=== PATIENT | female | born 1975 | race Caucasian/White ===

== ENCOUNTER 2016-10-11 23:55 | Inpatient (IN) | payer OTHER ==
--- NOTE | ~2016-10-11 | ST ---
Unit #: [id number] #: [id number] Patient: ROMAN ODEN [id number] [facility]. [address] [address] [id number] I MR#: [id number] NAME: ROMAN ODEN : 1975 SEX: F STUDY DATE/TIME: 10/12/2016 UNIT: CEDOF ROOM: 44438 STUDY DESCRIPTION: Stress Test Attending Physician: Joann Garcia M.D. Primary Care Physician: Tyler Cordoba M.D. CARDIOLOGY REPORT EXAM Exercise Cardiolite REASON FOR TEST Chest pain. DESCRIPTION Baseline EKG shows normal sinus rhythm, rate of 91 beats per minute. The patient exercised on the treadmill according to Julius protocol for a total of 5 minutes 26 seconds achieving 6.70 METs with a resting heart rate of 91 beats per minute and peak heart rate of 173 beats per minute representing 97% of the maximum predicted heart rate. There were no ST segment changes noted during the testing. The patient did experience frequent ventricular ectopy during the testing period. This resolved in recovery. During the test, the patient did complain of shortness of breath that worsened with exertion. She denied any complaints of chest pain. However, the patient was unable to go into stage 2 secondary to this reason. Therefore, her testing was modified in order to achieve target heart rate and to keep the patient comfortable. IMPRESSION 1. Negative EKG portion of exercise Cardiolite. 2. No ST segment changes suggestive of ischemia. 3. Frequent ventricular ectopy noted during exercise. Occasional PVCs in recovery. 4. Patient denied any complaints of chest pain throughout the testing period. However, she did complain of shortness of breath and was unable to go into stage 2. Her Julius protocol was modified in order to achieve target heart rate. Patient did complain of extreme shortness of breath. 5. Testing was stopped secondary to this reason and the target heart rate achieved. 6. Poor exercise tolerance. 7. Please correlate with nuclear imaging. Unit #: [id number] #: [id number] Patient: ROMAN ODEN Dictated by... Lacey Demarco M.D. LMW/mavis TD: 10/12/2016 12:51 JOB #: [id number] CARDIOLOGY REPORT Page 1 of 1 X Lisseth Alvarado APRN CARDIOLOGY REPORT
--- NOTE | ~2016-10-11 | CO ---
Unit #: [id number] #: [id number] Patient: ROMAN ODEN [id number] [address] [place], [place] [address] [id number] I MR#: [id number] NAME: ROMAN ODEN ROOM: 549 Age: 40 Sex: F Admission Date: 10/12/2016 : 1975 Attending Physician: Joann Garcia M.D. Primary Care Physician: Tyler Cordoba M.D. Consultation Date: 10/14/2016 CONSULTATION REPORT REASON FOR CONSULTATION Elevated creatinine level. HISTORY OF PRESENT ILLNESS The patient is a 40-year-old white female with known history of hypertension, asthma. She has not been seeing physicians for the last several years. She is not taking any medications. The patient has not had a recent creatinine level as she has not seen a physician in the last two years or so. 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 The patient has not needed dialysis in the past. She has not seen a shadow graph weight operator in the past. The creatinine level is noted to be 2.3. There was no reported use of NSAIDs. No recent IV contrast. No vomiting, diarrhea. No hematuria, dysuria. PAST MEDICAL HISTORY Significant for hypertension with no medications for last several years; history of asthma; history of heroin use, reportedly quit 1 to 1-1/2 years ago. PAST SURGICAL HISTORY Significant for cholecystectomy and tubal ligation. HOME MEDICATIONS Includes Suboxone twice daily and Zantac 150 twice daily. ALLERGIES No known drug allergies. SOCIAL HISTORY The patient lives at home. She is unemployed. Smokes half a pack daily. FAMILY HISTORY Significant for father at age of 68 from congestive heart failure. REVIEW OF SYSTEMS CVS: Chest pain as above. RESPIRATORY: No cough or expectoration. GI: No diarrhea, no vomiting. : No hematuria, no dysuria. PHYSICAL EXAMINATION GENERAL: The patient is awake, alert, and oriented. VITAL SIGNS: Blood pressure is 138/98, heart rate is 102 per minute, temperature is 99.8, saturation 99%. Unit #: [id number] #: [id number] Patient: ROMAN ODEN HEENT: Head is atraumatic. Extraocular movements are intact. Sclerae are anicteric. Nose, no discharge. Ears, no discharge. NECK: Supple. There was no elevation of JVD. CHEST: Clear. Air entry is equal bilaterally with scattered rhonchi. HEART: S1 and S2 audible. There is no S3, no S4. ABDOMEN: Soft. There is no organomegaly. No guarding. No rigidity. No rebound tenderness. There is no edema. PROMOTIONAL ADVERTISING ASSISTANT: Motor system is intact. Cerebellar system is intact. DIAGNOSTIC STUDIES LABORATORY RESULTS: Sodium 136, potassium 4.1, chloride 109, CO2 of 21, calcium 8.3, glucose is 92, creatinine 2.2. Bilirubin is 0.5, AST is 12, ALT is 9, alkaline phosphatase is 61. WBC 11.7, hemoglobin 9, hematocrit 28.2, platelets 496. IMPRESSION 1. Likely chronic kidney disease secondary to hypertensive nephrosclerosis. The patient has been noncompliant, has not been following with physicians. We will check renal ultrasound. 2. Possible underlying anemia of chronic kidney disease. 3. Hypertension. 4. Asthma. 5. Chest pain. Dictated by... Philippe Lucas M.D. RA/joe TD: 10/15/2016 04:12 JOB #: [id number] CONSULTATION REPORT Page 1 of 1 X Philippe Lucas MD CONSULTATION REPORT
--- NOTE | ~2016-10-11 | DS ---
Unit #: [id number] #: [id number] Patient: ROMAN RAUSCH [id number] [address] [address] [id number] I MR#: [id number] NAME: ROMAN RAUSCH. ROOM: 549 Age: 40 Sex: F Admission Date: 10/12/2016 : 1975 Discharge Date: 10/14/2016 Attending Physician: Joann Garcia M.D. Primary Care Physician: Tyler Cordoba M.D. DISCHARGE SUMMARY FINAL DIAGNOSES 1. Chest pain. Acute myocardial infarction has been ruled out. Stress test was done, which is normal. Ejection fraction is 67%. 2. Acute on chronic kidney disease. The patient was seen by Dr. Lucas. Medications were adjusted. 3. Hypertension, uncontrolled. Medications have been adjusted. 4. Anemia, most likely secondary to chronic kidney disease, and also iron-deficiency anemia with low serum iron level and low ferritin level. 5. Urinary tract infection with urine culture preliminary result is gram-negative rods, possible Escherichia coli. 6. Asthma. 7. Gastroesophageal reflux disease. 8. History of drug abuse. DISCHARGE MEDICATIONS Lisinopril 5 mg p.o. daily, Norvasc 5 mg p.o. daily, Lopressor 25 mg b.i.d., Zantac 150 mg b.i.d., aspirin 81 mg daily, Suboxone continue home dose, Levaquin 500 mg daily for 5 days. CONSULTATION DURING HOSPITALIZATION 1. Dr. Ludwig from Cardiology Services. 2. Dr. Lucas from Renal Services. DIAGNOSTIC STUDIES LABORATORY RESULTS: Upon discharge; sodium 139, potassium 4.1, chloride 112, BUN 19, creatinine 2.1. CBC shows WBC 7.1, hemoglobin 8.2, hematocrit 24.3, and platelet count of 278. Ferritin is 9, which is low. Serum iron is 23, which is low. TSH was 2.42. Lipid profile shows total cholesterol 134, triglycerides 66, LDL 91, and HDL 30. Urine culture preliminary result is gram-negative more than 100,000 colonies. IMAGING STUDIES: Ultrasound of the kidneys were done bilateral, which showed negative renal ultrasound. PROCEDURE PERFORMED Stress test, which shows no ischemia. HOSPITAL COURSE Ms. Roman Rausch is a 40-year-old female, who was admitted to the hospital Unit #: [id number] #: [id number] Patient: ROMAN RAUSCH with a complaint of chest pain. Acute myocardial infarction was ruled out. Stress test was done, which was negative. The patient is being placed on aspirin, beta-julio cesar, and calcium channel julio cesar. Per cardiology, no further cardiac workup is needed at this time. The patient was also found to have acute on chronic kidney disease. The patient was seen by Dr. Lucas. Most likely, she does have chronic kidney disease, stage 3. The patient's renal functions are acceptable. Volume is satisfactory. The patient can be discharged home. The patient was found to be anemic. The patient does have anemia secondary to renal disease and also iron-deficiency anemia. The patient is being prescribed ferrous sulfate to be taken twice a day. Lab workup needs to be done as an outpatient. She may need a GI workup as an outpatient for anemia. PHYSICAL EXAMINATION VITAL SIGNS: On discharge, blood pressure is 134/85; respiratory rate 16; pulse is 87; temperature 98.3. CHEST: Fair air entry. No additional sounds. CVS: S1, S2 positive. Regular rhythm. ABDOMEN: Soft. EXTREMITIES: Negative edema. DISCHARGE INSTRUCTIONS 1. The patient is being discharged home in stable condition. 2. Medication as per med rec. 3. Follow up with primary care provider in 1 week. 4. CBC and BMP to be done in 1 week to evaluate anemia and renal functions. 5. Follow up with Dr. Ludwig on 01/11/2017 at 2:15 p.m. 6. Follow up on final urine culture report at primary care provider's office. 7. Plan of care has been discussed with the patient at length. Dictated by... Cem Torres/joe TD: 10/17/2016 01:19 JOB #: [id number] DISCHARGE SUMMARY Page 1 of 1 X Joann Garcia MD DISCHARGE SUMMARY
--- NOTE | ~2016-10-11 | US77 ---
[facility] A Service of [facility] RADIOLOGY TEXT RESULTS PATIENT: ROMAN ODEN LOCATION: [facility] : [birth year] UNIT #: [id number] AGE: [address]: Joann Garcia MD SEX: F ORDER DR: [id number] [place], [place] [address] [id number] I MR#: [id number] Acc #: [id number] NAME: ROMAN ODEN. : 1975 SEX: F STUDY DATE/TIME: 10/12/2016 12:43 UNIT: [facility] ROOM: [facility] STUDY DESCRIPTION: US Kidney Bilateral Complete Attending Physician: Joann Garcia M.D. Ordering Physician: Philippe Lucas M.D. Primary Care Physician: Tyler Cordoba M.D. MEDICAL IMAGING REPORT This report is preliminary unless electronic signature is present EXAM Renal ultrasound INDICATIONS Acute kidney injury. eGFR 26, BUN 16, creatinine 2.2. TECHNIQUE Taylor-scale and Doppler imaging of the kidneys and bladder. COMPARISON None. FINDINGS The left kidney measures 9.9 cm. No hydronephrosis. The right kidney measures 7.3 cm. No obvious hydronephrosis. IMPRESSION Negative renal ultrasound. Dictated by... Lopez Leo M.D. THIS IS AN ELECTRONICALLY VERIFIED REPORT Lopez Leo M.D. at 10/13/2016 7:19 AM EED/pcl TD: 10/12/2016 23:03 JOB #: [id number] MEDICAL IMAGING REPORT [facility] A Service of [facility] RADIOLOGY TEXT RESULTS PATIENT: ROMAN ODEN LOCATION: [facility] : [birth year] UNIT #: [id number] AGE: [address]: Joann Garcia MD SEX: F ORDER DR: Page 1 of 1 COPY
--- NOTE | ~2016-10-11 | CO ---
Unit #: [id number] #: [id number] Patient: ROMAN RAUSCH [id number] [address] [place], [place] [address] [id number] I MR#: [id number] NAME: ROMAN RAUSCH ROOM: 549 Age: 40 Sex: F Admission Date: 10/12/2016 : 1975 Attending Physician: Joann Garcia M.D. Primary Care Physician: Tyler Cordoba M.D. CONSULTATION REPORT REASON FOR CONSULTATION Chest pain. HISTORY OF PRESENT ILLNESS This is a 40-year-old white female with known history of, reports she has, asthma; hypertension, but currently has been on medications for couple of years; nicotine abuse; former heroin abuse, who was in rehabilitation, who came to the emergency room with complaints of midsternal chest pain. According to the patient, she started developing this pain few hours before admission. She described it as a sharp intense pain; on pain scale 1 to 10, rated it about 7. No radiation of the pain up into the neck, bilateral jaws, shoulders, arms, or elbow. Has some slight shortness of breath with pain. Denies any palpitations, nausea, vomiting, dizziness, or diaphoresis. The patient's father of congestive heart failure. She was concerned it could be her heart, so she came to the emergency room for further evaluation and management. The patient has never been seen by a field naturalist in the past. In the emergency room, the patient's blood pressure was 166/97, heart rate 91, respirations 16, temperature 98.3, O2 saturation was 100% on room air. The patient's EKG showed normal sinus rhythm. No acute ischemic changes. Initial cardiac enzymes negative. The patient received aspirin 81 mg x4 and received normal saline bolus. Her initial labs; the patient's BUN was 17 with a creatinine of 2.3, eGFR was 25.4, potassium was 4.2. WBCs 11.7, hemoglobin was 9 with platelets of 496. The patient will be admitted for further evaluation. Cardiology was consulted to assist with evaluation and management. PAST MEDICAL HISTORY 1. Hypertension, but noncompliant with medications, has not taken anything for about 2 years. 2. Reports of asthma. 3. Nicotine abuse. 4. Heroin abuse, quit -2 years ago using heroin. PAST SURGICAL HISTORY 1. Cholecystectomy. 2. Tubal ligation. HOME MEDICATIONS Suboxone 8 mg/2mg sublingual b.i.d., Zantac 150 mg p.o. b.i.d. ALLERGIES Unit #: [id number] #: [id number] Patient: ROMAN RAUSCH No known drug allergies. SOCIAL HISTORY The patient lives with her family. She is currently unemployed. She smokes about a half pack of cigarettes a day, has been smoking most of her adult life. No alcohol use. She used to use heroin and quit, and has been clean for one and a half years. FAMILY HISTORY Her father at the age of 68 of congestive heart failure. Mother and siblings are in generally well health. REVIEW OF SYSTEMS See details in HPI. PHYSICAL EXAMINATION GENERAL: On exam, Ms. Rausch is a 40-year-old white female, in no acute respiratory distress. She is awake, alert, and oriented. VITAL SIGNS: Currently, blood pressure is 138/98, heart rate 102, respirations 16, temperature 99.8, O2 saturations 99% on room air. NECK: Trachea midline. No thyromegaly or lymphadenopathy. Normal carotid upstrokes. No jugular venous distention. HEART: S1, S2. Regular rate and rhythm. No clicks, murmurs, or rubs. LUNGS: Diminished with expiratory faint wheezes and scattered rhonchi that clears with cough. ABDOMEN: Soft, nontender. Positive bowel sounds present. EXTREMITIES: Pedal pulses are palpable. No pedal edema. DIAGNOSTIC DATA LABORATORY RESULTS: Today's lab; glucose is 92, BUN 16, creatinine 2.2, eGFR is 26.8, sodium 136, potassium 4.1, chloride 109, CO2 of 21, calcium is 8.3, total protein 7.7, albumin 3.6, bilirubin total 0.5, AST 12, ALT 9, alkaline phosphatase is 61. WBCs 11.7, hemoglobin 9.0, hematocrit 28.2, platelets are 496. Initial cardiac enzymes; CK-MB is less than 1.0, troponin less than 0.05. Latest cardiac enzymes; CK total is 27, troponin less than 0.03. INR is 1.0. IMAGING STUDIES: Chest x-ray shows nothing acute. Lungs are clear. CARDIOVASCULAR STUDIES: EKG shows normal sinus rhythm with ventricular rate 92 beats per minute, slow R-wave progression. IMPRESSION 1. Chest pain, questionable etiology. 2. Poorly controlled hypertension. 3. Acute kidney injury. 4. Gastroesophageal reflux disease. 5. Anemia. 6. History of tobacco abuse. 7. History of heroin abuse. 8. Mild exacerbation of bronchitis. PLAN 1. Cardiology consult to assist with evaluation and management of chest pain. 2. On interview and exam, Dr. Ludwig feels likely her chest pain is costochondritis, however, she has multiple risk factors along with a history of drug abuse and nicotine abuse and poorly controlled Unit #: [id number] #: [id number] Patient: ROMAN RAUSCH hypertension. Plans are to do a stress test to further evaluate for ischemic heart disease. 3. Obtain a TSH and fasting lipid profile and evaluate. 4. We will start the patient on amlodipine 5 mg p.o. now and make any adjustments for better blood pressure control. 5. We will consult Dr. King with Nephrology to evaluate the patient's acute kidney injury, likely secondary to poorly controlled hypertension. 6. Obtain a 2D echo to evaluate LV function and valves. 7. Treatment for bronchitis. 8. Encourage the patient to completely quit smoking. Smoking cessation information provided to the patient. 9. On exam, there are no signs or symptoms of acute congestive heart failure. 10. Further recommendations pending per Dr. Ludwig. Dictated by... Kaci Plata A.P.R.N. for Cem Nino/joe TD: 10/13/2016 00:45 JOB #: [id number] CONSULTATION REPORT Page 1 of 1 X Kaci Plata APRN CONSULTATION REPORT
--- NOTE | ~2016-10-11 | TH ---
Unit #: [id number] #: [id number] Patient: ROMAN ODEN [id number] [facility]. [address] [address] [id number] I MR#: [id number] NAME: ROMAN ODEN. : 1975 SEX: F STUDY DATE/TIME: 10/12/2016 UNIT: C5B ROOM: [facility] STUDY DESCRIPTION: Cardiolite study Attending Physician: Joann Garcia M.D. Primary Care Physician: Tyler Cordoba M.D. CARDIOLOGY REPORT EXAM Exercise Cardiolite stress test nuclear portion. SUMMARY Using Tc-99m labeled Cardiolite, rest and stress SPECT images were obtained. Multiple SPECT images were obtained in various views including horizontal and vertical long axis and short axis views of the left ventricle. Images were obtained by gated SPECT method. The patient was administered 10.56 mCi of Cardiolite at rest. The patient was administered 30.8 mCi of Cardiolite at peak exercise. Total exercise time is 2 minutes and 49 seconds. On the stress images, there is normal perfusion noted. The rest images showed normal perfusion. Comparing rest and stress images, there is no stress induced ischemia noted. The left ventricular ejection fraction is calculated to be 67%. There is no focal wall motion abnormality seen. CONCLUSION 1. No stress induced ischemia noted. 2. The left ventricular ejection fraction is calculated to be 67%. 3. There is no focal wall motion abnormality seen. 4. Normal nuclear portion of the stress test. 5. It must be noted that the patient exercised for only 2 minutes and 49 seconds and had extreme shortness of breath. Clinical correlation is requested. 1. Dictated by... Cem Yanes TD: 10/13/2016 08:45 JOB #: [id number] Unit #: [id number] #: [id number] Patient: ROMAN ODEN CARDIOLOGY REPORT Page 1 of 1 X Briana Pearson MD <ELECTRONICALLY SIGNED> 01/22/17 1429 CARDIOLOGY REPORT
--- NOTE | ~2016-10-11 | EKG ---
PATIENT: ROMAN ODEN UNIT #: [id number] Ventricular Rate: 92 BPM Atrial Rate: 92 BPM P-R Interval: 132 ms QRS Duration: 74 ms Q-T Interval: 396 ms QTC Calculation(Bezet): 489 ms P Berry: 9 degrees Calculated R Berry: -5 degrees Calculated T Berry: 21 degrees Diagnosis Line: Normal sinus rhythm Diagnosis Line: Prolonged QT Diagnosis Line: Abnormal ECG Diagnosis Line: No previous ECGs available Diagnosis Line: Confirmed by GLORIA PERRY MD ([id number]) on 10/12/2016 Diagnosis Line: 10:08:56 PM INTERPRETING MD: VICKY JACKSON
--- NOTE | ~2016-10-11 | CR72 ---
[facility] A Service of [facility] RADIOLOGY TEXT RESULTS PATIENT: ROMAN ODEN LOCATION: [facility] [id number] : [birth year] UNIT #: [id number] AGE: [address]: Joann Garcia MD SEX: F ORDER DR: [id number] [facility] [address] [facility]. [place], [place] [address] [id number] I MR#: [id number] Acc #: [id number] NAME: ROMAN ODEN : 1975 SEX: F STUDY DATE/TIME: 10/11/2016 21:04 UNIT: CEDOF ROOM: 33854 STUDY DESCRIPTION: CR Chest Single View Portable Attending Physician: Joann Garcia M.D. Ordering Physician: Ed Doctor [id number] [facility] Primary Care Physician: Tyler Cordoba M.D. MEDICAL IMAGING REPORT This report is preliminary unless electronic signature is present EXAM Frontal chest, 10/11/2016 INDICATIONS Chest pain that began today, tobacco abuse 15 years, asthma, hypertension. TECHNIQUE Frontal chest compared with 07/03/2010. FINDINGS Cardiac silhouette is within normal limits for technique. Vascularity unremarkable. Lungs appear clear. No pneumothorax or effusion. IMPRESSION 1. Negative frontal chest. No change. Dictated by... Phoenix Cabrera M.D. THIS IS AN ELECTRONICALLY VERIFIED REPORT Phoenix Cabrera M.D. at 10/12/2016 11:41 AM ELIZABETH/kristi TD: 10/12/2016 00:30 JOB #: [id number] MEDICAL IMAGING REPORT Page 1 of 1 COPY
--- NOTE | ~2016-10-11 | HP ---
Unit #: [id number] #: [id number] Patient: ROMAN ODEN R [id number] [facility] [address] [place], [place] [address] [id number] MR#: [id number] NAME: ROMAN ODEN ROOM: 549 Age: 40 Sex: F Admission Date: 10/12/2016 : 1975 Attending Physician: Joann Garcia M.D. Primary Care Physician: Tyler Cordoba M.D. HISTORY AND PHYSICAL CHIEF COMPLAINT Chest pain. HISTORY OF PRESENTING ILLNESS Miss Alvarado is a 40-year-old female with a history of hypertension, asthma, GERD, and history of drug abuse, on Suboxone at this time, who came with chest pain. Patient was sitting watching TV when suddenly she had pain in the epigastric area and left chest area. It was continuous pain. She did not have any shortness of breath, no radiation of pain to the left arm or the neck, no sweating, and no palpitations. She came to [facility] ER. Cardiac enzymes were done, and Cardiology was consulted. Patient was admitted to rule out any cardiac etiology. Patient was also found to have acute renal insufficiency. According to patient, she has had multiple stones in the kidneys but does not remember having any kidney failure. Patient does not have any primary care provider at this time and is looking for one. PAST MEDICAL HISTORY 1. Hypertension. 2. Asthma. 3. Gastroesophageal reflux disease. 4. History of drug abuse. PAST SURGICAL HISTORY 1. Cholecystectomy. 2. Tubal ligation. HOME MEDICATIONS Zantac and omeprazole. She is not on any blood pressure medication at this time. SOCIAL HISTORY Patient lives at home with her boyfriend and two children. She has been smoking for the last 15 years and smokes one-half pack per day. No history of alcohol abuse. She has a past history of drug abuse. She used to snort heroin but has been clean for the last one and a half years. FAMILY HISTORY Patient's father at the age of 68 with congestive heart failure and also had diabetes. According to patient, her aunts and uncles on her mother's side have a strong history of malignancies, but she does not know exactly what kind. Unit #: [id number] #: [id number] Patient: ROMAN ODEN REVIEW OF SYSTEMS No history of fever, chills, or rigors. No history of abdominal pain. No history of nausea and vomiting. No history of dizziness. No history of syncopal episode. No skin issues. No leg swelling. PHYSICAL EXAMINATION GENERAL: Patient is lying in bed in no respiratory distress. VITAL SIGNS: Blood pressure 130/88. It was 166/97 on admission. Respiratory rate 18, pulse 78, and temperature 98.4. Temperature was 100.1 on admission, although she has been afebrile so far. HEENT: Head is normocephalic. Eye movements are normal. NECK: Supple. CHEST: Fair air entry. No additional sounds. CARDIOVASCULAR: S1 and S2 positive. Regular rhythm. ABDOMEN: Obese, soft. No tenderness, no rigidity, no rebound. Bowel sounds are positive. EXTREMITIES: Negative edema. Pulses are palpable. CENTRAL NERVOUS SYSTEM: Awake, alert, and oriented x3. No focal neurological deficit. DIAGNOSTIC STUDIES LABORATORY: PT 10.2 and INR 1. Sodium 137, potassium 4.2, chloride 109, BUN 17, and creatinine 0.3. WBC is 11.7, hemoglobin 9, hematocrit 28.2, and platelet count of 496,000. Troponin is less than 0.05. Total cholesterol 134, triglycerides 66, LDL 91, and HDL 30. TSH is 2.42. IMAGING: Chest x-ray, single view, was done which showed negative frontal chest and no change. ASSESSMENT Patient is being admitted to telemetry unit. Dr. Ludwig has been consulted. A stress test will be done. Acute myocardial infarction has been ruled out. Protonix 40 mg orally daily is being continued. Dr. Lucas has been consulted for acute renal failure, and workup is being done. Norvasc is being started for blood pressure. Tobacco cessation counseling done. Please refer to progress note for further orders. Dictated by Cem Torres TD: 10/12/2016 15:30 JOB #: [id number] HISTORY AND PHYSICAL Page 1 of 1 X Joann Garcia MD HISTORY AND PHYSICAL
[2016-10-11 21:23] LABS: BASOPHIL# 0.1 X10e3 (0-0.3); BASOPHIL% 0.9 % (0-2.5); DIFF IND YES; EOSINOPHIL# 0.3 X10e3 (0-0.7); EOSINOPHIL% 2.2 % (0.0-7.0); HEMATOCRIT 28.2 % (35.0-45.0); MEAN CELL VOLUME 98.3 FL (83-96); MEAN CORPUSCULAR HEMOGLOBIN 31.6 PG (28-34); MEAN CORPUSCULAR HGB CONC 32.1 g/dL (30-36); MEAN PLATELET VOLUME 7.2 FL (6.5-11.5); MONOCYTE# 0.5 X10e3 (0-1.0); MONOCYTE% 4.5 % (3.0-12.0); NEUTROPHIL# 8.9 X10e3 (1.5-7.1); NEUTROPHIL% 75.4 % (40-75); PLATELET COUNT 496 X10e3 (140-420); RED BLOOD COUNT 2.87 X10e (3.90-5.30); RED CELL DISTRIBUTION WIDTH 27.2 % (11.0-15.5); WHITE BLOOD COUNT 11.7 X10e3 (4.0-10.5)
[2016-10-11 21:30] LABS: PARTIAL THROMBOPLASTIN TIME 22.6 SECONDS (23.5-31.3); PROTHROMBIN TIME (PATIENT) 10.2 SECONDS (9.6-11.5)
[2016-10-11 21:45] LABS: ALBUMIN SERUM 3.6 g/dL (3.5-5.0); ALKALINE PHOSPHATASE 61 U/L (32-92); ALT (SGPT) 9 U/L (10-40); AST (SGOT) 12 U/L (10-42); BILIRUBIN, DIRECT <0.1 mg/dL (0.0-0.2); BILIRUBIN,INDIRECT 0.4 mg/dL (0.0-0.9); BILIRUBIN,TOTAL 0.5 mg/dL (0.2-2.0); BLOOD UREA NITROGEN 17 mg/dL (9-23); BUN/CREATININE RATIO 7.39; CALCIUM SERUM 8.8 mg/dL (8.4-10.2); CARBON DIOXIDE 21 mmol/L (22-31); CHLORIDE 109 mmol/L (100-111); CREATININE SERUM 2.3 mg/dL (0.6-1.4); GLOM FILT RATE Estimated 25.4 mL/min (>60); GLUCOSE FASTING 104 mg/dL (70-110); POTASSIUM 4.2 mmol/L (3.5-5.1); PROTEIN TOTAL SERUM 7.7 g/dL (6.0-8.3); SODIUM 137 mmol/L (135-145)
[2016-10-11 21:48] LABS: HYPERSEGMENTED POLYS PRESENT; PLATELET ESTIMATE INCREASED (NORMAL)
[2016-10-11 21:49] LABS: ANISOCYTOSIS MOD; TARGET CELLS SL
[2016-10-11 21:50] LABS: HYPOCHROMIA SL
[2016-10-11 23:35] LABS: POC - CKMB <1.0 ng/mL (0.0-7.9); POC - TROPONIN <0.05 ng/mL (<=0.05)
[~2016-10-11 23:55] MED LIST: OMEPRAZOLE20 M2 PO; SUBOXONE 8 MG-1 EAC1 SL; ZANTAC150 MG PO
[2016-10-12 02:08] LABS: BUN/CREATININE RATIO 7.27; CALCIUM SERUM 8.3 mg/dL (8.4-10.2); CREATININE SERUM 2.2 mg/dL (0.6-1.4); GLOM FILT RATE Estimated 26.8 mL/min (>60); POTASSIUM 4.1 mmol/L (3.5-5.1)
[2016-10-12 02:25] LABS: CHOLESTEROL 134 mg/dL (0-200); HDL CHOLESTEROL 30 mg/dL (35-95); LDL CHOLESTEROL 91 mg/dL ([, -130]); LDL/HDL RATIO 3 RATIO (0-4); TRIGLYCERIDES 66 mg/dL (10-160)
[2016-10-12 07:40] LABS: CK TOTAL 29 IU/L (26-140)
[2016-10-12 14:18] LABS: CK TOTAL 27 IU/L (26-140)
[2016-10-12 20:07] LABS: URINE APPEARANCE CLOUDY; URINE BILIRUBIN NEG (NEG); URINE BLOOD NEG (NEG); URINE COLOR YELLOW; URINE GLUCOSE NEG (NEG); URINE KETONE NEG (NEG); URINE LEUKOCYTE ESTERASE 3+ (NEG); URINE NITRATE POS (NEG); URINE PROTEIN NEG (NEG); URINE SPECIFIC GRAVITY 1.009 (1.003-1.035); URINE UROBILINOGEN 0.2 MG/DL (NEG)
[2016-10-12 20:09] LABS: URINE BACTERIA AUWI 4+ (NEGATIVE); URINE SQUAMOUS EPITHELIAL CELL OCC /[HPF]; UWBCS1 AUWI 50-100 (0-5)
[2016-10-12 20:28] LABS: CREATININE,RANDOM URINE 72 mg/dL; TOTAL PROTEIN,RANDOM URINE 24 mg/dl (<10)
[2016-10-13 07:32] LABS: HEMATOCRIT 23.2 % (35.0-45.0); HEMOGLOBIN 7.6 gm/dL (12.0-16.0); MEAN CELL VOLUME 98.6 FL (83-96); MEAN CORPUSCULAR HEMOGLOBIN 32.1 PG (28-34); MEAN CORPUSCULAR HGB CONC 32.6 g/dL (30-36); MEAN PLATELET VOLUME 7.6 FL (6.5-11.5); RED BLOOD COUNT 2.36 X10e (3.90-5.30); RED CELL DISTRIBUTION WIDTH 25.7 % (11.0-15.5); WHITE BLOOD COUNT 8.4 X10e3 (4.0-10.5)
[2016-10-13 08:13] LABS: BUN/CREATININE RATIO 9.09; CALCIUM SERUM 8.3 mg/dL (8.4-10.2); CREATININE SERUM 2.2 mg/dL (0.6-1.4); GLOM FILT RATE Estimated 26.8 mL/min (>60); POTASSIUM 4.1 mmol/L (3.5-5.1)
[2016-10-13 23:54] LABS: URINE APPEARANCE CLEAR; URINE BILIRUBIN NEG (NEG); URINE BLOOD NEG (NEG); URINE COLOR YELLOW; URINE GLUCOSE NEG (NEG); URINE KETONE NEG (NEG); URINE LEUKOCYTE ESTERASE 3+ (NEG); URINE NITRATE POS (NEG); URINE PH 6.5 (5-8); URINE PROTEIN NEG (NEG); URINE SPECIFIC GRAVITY 1.005 (1.003-1.035); URINE UROBILINOGEN 0.2 MG/DL (NEG)
[2016-10-13 23:57] LABS: U HYALINE CASTS AUWI 0-2 /[LPF]; URINE BACTERIA AUWI 4+ (NEGATIVE); URINE SQUAMOUS EPITHELIAL CELL NONE SEEN /[HPF]; UWBCS1 AUWI 25-50 (0-5)
[2016-10-14 00:17] LABS: AMPHETAMINE NEG (NEG); BARBITURATES NEG (NEG); BENZODIAZEPINES NEG (NEG); COCAINE NEG (NEG); MARIJUANA NEG (NEG); OPIATES NEG (NEG); TRICYCLIC ANTIDEPRESSANTS NEG (NEG); U METHADONE NEG (NEG)
[2016-10-14 06:29] LABS: HEMATOCRIT 24.3 % (35.0-45.0); MEAN CELL VOLUME 98.8 FL (83-96); MEAN CORPUSCULAR HEMOGLOBIN 32.6 PG (28-34); MEAN PLATELET VOLUME 7.8 FL (6.5-11.5); RED BLOOD COUNT 2.46 X10e (3.90-5.30); RED CELL DISTRIBUTION WIDTH 25.8 % (11.0-15.5); WHITE BLOOD COUNT 7.1 X10e3 (4.0-10.5)
[2016-10-14 06:53] LABS: BUN/CREATININE RATIO 9.04; CALCIUM SERUM 8.5 mg/dL (8.4-10.2); CREATININE SERUM 2.1 mg/dL (0.6-1.4); GLOM FILT RATE Estimated 28.3 mL/min (>60); POTASSIUM 4.1 mmol/L (3.5-5.1)
[2016-10-14] MEDS ORDERED: METOPROLOL SUCC25 MG PO (17:00)
[2016-10-14] MEDS ORDERED: NORVASC PO (17:00)
[2016-10-14] MEDS ORDERED: ASPIRIN81 MG PO (17:02)
[2016-10-14] MEDS ORDERED: LEVAQUIN PO (17:02)
[2016-10-14] MEDS ORDERED: PRINIVIL5 MG PO (17:03)
[2016-10-16 02:41] LABS: ABN PROTEIN BAND 1 (SPE) 1.1 g/dL (()); SPE A1GLOB (PNL) 0.3 g/dL (0.2-0.3); SPE A2GLOB (PNL) 0.6 g/dL (0.5-0.9); SPE ALB (PNL) 3.2 g/dL (3.8-4.8); SPE BETA 1 GLOBULIN 0.4 g/dL (0.4-0.6); SPE BETA 2 GLOBULIN 0.2 g/dL (0.2-0.5); SPE GAMMA (PNL) 1.3 g/dL (0.8-1.7); SPETP (PNL) 5.9 g/dL (6.1-8.1)
== END 2016-10-14 18:29 | disposition home or self-care (01) | DRG 683 ==
LOC: CED 23:55 → CEDOF 10-12 00:18 → C5B 10-12 13:39
PROVIDERS: Emergency Medicine; Hospitalist; Internal Medicine Nephrology; Physician Assistant Medical
DX: N17.9 Acute kidney failure, unspecified (principal); N39.0 Urinary tract infection, site not specified; I13.10 Hypertensive heart and chronic kidney disease without heart failure, with stage 1 through stage 4 chronic kidney disease, or unspecified chronic kidney disease; E11.9 Type 2 diabetes mellitus without complications; B96.20 Unspecified Escherichia coli [E. coli] as the cause of diseases classified elsewhere; M94.0 Chondrocostal junction syndrome [Tietze]; F17.210 Nicotine dependence, cigarettes, uncomplicated; N18.3 Chronic kidney disease, stage 3 (moderate); Z71.6 Tobacco abuse counseling; Z80.9 Family history of malignant neoplasm, unspecified; Z83.3 Family history of diabetes mellitus; J45.909 Unspecified asthma, uncomplicated; Z91.14 Patient's other noncompliance with medication regimen; Z90.49 Acquired absence of other specified parts of digestive tract; D63.1 Anemia in chronic kidney disease; K21.9 Gastro-esophageal reflux disease without esophagitis; Z87.442 Personal history of urinary calculi; J20.9 Acute bronchitis, unspecified; E66.9 Obesity, unspecified; Z68.34 Body mass index [BMI] 34.0-34.9, adult
CPT/HCPCS: 36415; 71010; 76770; 78452; 80048; 80061; 80076; 80307; 81003; 82550; 82553; 82570; 82728; 83540; 84156; 84165; 84443; 84484; 85025; 85027; 85610; 85730; 86334; 87086; 87088; 87186; 93005; 93017; 99285; A9500